=== PATIENT | male | born 1965 | race Caucasian/White ===

== ENCOUNTER → 2017-05-16 | Outpatient (CLI) | payer BC ==
[2017-05-16 09:24] LABS: BUN 9 mg/dL (7-18)
[2017-05-16 09:43] LABS: GFR (ESTIMATED) 102 ML/MIN (>60)
== END ==
LOC: LAB 07:03
PROVIDERS: Family Medicine
DX: Z13.29 Encounter for screening for other suspected endocrine disorder (principal)

== ENCOUNTER 2017-11-02 21:12 | Observation (INO) | payer BC ==
[~2017-11-02] VITALS: Ht 172.7 cm; Wt 65.5 kg
[2017-11-02 21:21] VITALS: BP 192/115
[2017-11-02] MEDS ORDERED: COLESTIPOL HYDRO1 GM PO (21:27)
[2017-11-02] MEDS ORDERED: PANTOPRAZOLE SO40 M1 PO (21:28)
[2017-11-02] MEDS ORDERED: MELOXICAM15 MG PO (21:28)
[2017-11-02 21:31] LABS: URINE BILIRUBIN - DIPSTICK NEGATIVE (NEG); URINE BLOOD NEGATIVE (NEG)
[2017-11-02 21:34] LABS: HEMOGLOBIN 13.5 g/dL (14.1-18.0); LYMPH # 2.6 K/mm3 (0.7-4.5); LYMPH % 36.8 % (10-50)
--- OUTSIDE RECORDS SUMMARY | 2017-11-02 21:37 | External Medical Summary Rpt ---
[facility] Address Unknown Phone Unavailable Care Team Providers Care Military Technician Name Role Phone PHY, UNKNOWN PCP Unavailable Encounter [facility] [id number] Date(s): 12/03/16 - 12/03/16 [facility] [address] [place] [address]- Discharge Disposition: OP Self Care or Home Attending Physician: STEVE AUSTIN II, MD-ANS Admitting Physician: STEVE AUSTIN II, MD-ANS Referring Physician: STEVE AUSTIN II, MD-ANS Reason for Visit PM Vital Signs No data available for this section Problem List No data available for this section Allergies, Adverse Reactions, Alerts No data available for this section Medications No data available for this section Results No data available for this section Immunizations No data available for this section Procedures No data available for this section Social History No data available for this section Assessment and Plan No data available for this section Hospital Discharge Instructions No data available for this section
--- OUTSIDE RECORDS SUMMARY | 2017-11-02 21:37 | External Medical Summary Rpt | CCD ---
Demographics Preferred Language Azeri Marital Status Unknown Faith Affiliation Unknown Race Unknown Ethnic Group Unknown Author Author , JULIANA ANDREWS Address Unknown Phone Immunization No patient found.
--- OUTSIDE RECORDS SUMMARY | 2017-11-02 21:37 | External Medical Summary Rpt | CCD ---
Author Author [employer] Organization [employer] Address Unknown Phone Unavailable Purpose Continuity of Care Document - through 2016
--- OUTSIDE RECORDS SUMMARY | 2017-11-02 21:37 | External Medical Summary Rpt | CCD ---
Author Author , JULIANA ANDREWS Address Unknown Phone [email or web address] Purpose Continuity of Care Document - 05-16-2017 through 2016
--- OUTSIDE RECORDS SUMMARY | 2017-11-02 21:37 | External Medical Summary Rpt | CCD ---
Demographics Preferred Language Maori Marital Status Unknown Quaker Affiliation Unknown Race Unknown Ethnic Group Unknown Author Author , JULIANA ANDREWS Address Unknown Phone Immunization No patient found.
--- OUTSIDE RECORDS SUMMARY | 2017-11-02 21:37 | External Medical Summary Rpt | CCD ---
Author Author , JULIANA ANDREWS Address Unknown Phone Purpose Continuity of Care Document - 05-16-2017 through 2016
--- OUTSIDE RECORDS SUMMARY | 2017-11-02 21:37 | External Medical Summary Rpt ---
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 [address]- Discharge Disposition: OP Self Care or Home [...]
--- OUTSIDE RECORDS SUMMARY | 2017-11-02 21:38 | External Medical Summary Rpt ---
Author Author JULIANA Nestor, JULIANA [employer] Organization [employer] Address Unknown Phone Unavailable Results Basic metabolic panel in Blood Observa Value Referen Units Interpr Notes Date tion ce etation Range Urea 7 - 18 mg/dL Normal No May 16 nitrogen informati 2016 7:04 [Mass/vol on in AM ume] in source Serum or data Plasma Calcium 8.5 - mg/dL Normal No May 16 [Mass/vol 10.1 informati 2016 7:04 ume] in on in AM Serum or source Plasma data Chloride 98 - 107 mmoL/L Low No May 16 [Moles/vo informati 2016 7:04 lume] in on in AM Serum or source Plasma data Carbon 21.0 - mmoL/L Normal No May 16 dioxide, 32.0 informati 2016 7:04 total on in AM [Moles/vo source lume] in data Serum or Plasma Creatinin 0.70 - mg/dL Normal No May 16 e 1.30 informati 2016 7:04 [Mass/vol on in AM ume] in source Serum or data Plasma Estimated >60 ML/MIN No REFERENCE May 16 informati RANGE: 2017 7:04 glomerula on in >60 AM r source ML/MIN/1. filtratio data 73 SQUARE n rate METERSIf (GF this patient is -A merican, then multiply theresult by 1.210. Glucose 74 - 106 mg/dL Normal No May 16 [Mass/vol informati 2016 7:04 ume] in on in AM Serum or source Plasma data Potassium 3.5 - 5.1 mmoL/L Normal No May 16 informati 2016 7:04 [Moles/vo on in AM lume] in source Serum or data Plasma Sodium 136 - 145 mmoL/L Low No May 16 [Moles/vo informati 2016 7:04 lume] in on in AM Serum or source Plasma data Lipid 1996 panel in Serum or Plasma Observa Value Referen Units Interpr Notes Date tion ce etation Range Cholester < 200 mg/dL No No May 16 ol informati informati 2017 7:04 [Moles/vo on in on in AM lume] in source source Unspecifi data data ed specimen Cholester 40 - 60 MG/DL High No May 16 ol in HDL informati 2016 7:04 on in AM [Mass/vol source ume] in data Serum or Plasma Cholester 0 - 130 mg/dL Normal No May 16 ol in LDL informati 2016 7:04 on in AM [Mass/vol source ume] in data Serum or Plasma by calculati on Triglycer 30 - 200 mg/dL Normal No May 16 bran informati 2017 7:04 [Moles/vo on in AM lume] in source Serum or data Plasma Cholester 0 - 40 No Normal No May 16 ol in informati informati 2017 7:04 VLDL on in on in AM [Mass/vol source source ume] in data data Serum or Plasma Thyrotropin [Units/volume] in Serum or Plasma Observa Value Referen Units Interpr Notes Date tion ce etation Range Thyrotrop 0.358 - uIU/ml Normal No May 16 in 3.740 informati 2017 7:04 [Units/vo on in AM lume] in source Serum or data Plasma
--- NOTE | 2017-11-02 22:27 | Emergency Room Report ---
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 N Clinical Suspician of Infection? N Mental Status: 1 - Regular (Normal Baseline) Sepsis Risk:Low Sepsis Risk Have you (or family members/close friends) recently traveled outside the [place]? N If Yes, where/when: Have you had exposure to infectious disease within the past month? N TB? Other? Specify: Source patient, RN notes reviewed, family, old records Exam Limitations no limitations Comment pt with progressive rt upper abd pain with nausea and vomiting with dec po intake - pt has known gb dis and has seen dr gtz in past Cardiac Chest Pain Chest pain indicative of cardiac No Timing/Duration this evening Severity moderate ALLERGIES Coded Allergies: No Known Allergies (06/09/17) Home Medications Reported Medications COLESTIPOL HCL (Colestipol HCl) 1 GM PO DAILY #60 Meloxicam (Meloxicam 15MG) 15 MG PO BID #30 Pantoprazole Sodium 40 MG PO DAILY #30 History Medical History General CAD? No Angina: No [place]: No Hypertension? No Hyperlipidemia? No CHF? No DVT? No PE? No COPD? No Asthma? No Anemia? No GERD? No Gastric ulcers? No GI Bleed? No Hernia? No Thyroid Problems? No Hypothyroidism? No CVA? No Seizures? No Diabetes? No Renal Insuffiency? No End Stage Renal Disease? No UTI? No Stones? No BPH? No GB Disease: Yes Nephritic Syndrome? No Asplenia? No Hepatitis? No Sickle Cell Disease? No Arthritis? No Migraines? No Cataracts? No Glaucoma? No MRSA? No HIV? No TB? No Anxiety? No Depression? No Cancer? No More? No Immunization Hx DT/Tetanus 1-4 YRS Surgical Hx Previous Surgery?Y TONSILLECTOMY CHILD Social History Smoking Hx Smoker: Current Every Day Smoker Tobacco: Yes Type Cigarettes Packs/day 1 1/2 - 2 Packs Alcohol Alcohol: Yes Drugs none Review of Systems All Other Systems Reviewed and Negative Constitutional denies fever Eyes denies drainage ENT denies: ear discharge, epistaxis, throat pain. Respiratory denies cough, denies shortness of breath, denies wheezing Cardiovascular denies chest pain, denies syncope Gastrointestinal see HPI, abdominal pain, nausea, vomiting Genitourinary denies: dysuria, frequency, hesitancy, hematuria. Musculoskeletal denies back pain, denies joint pain, denies neck pain Skin denies rash Psychiatric/Neurological denies headache, denies seizure Physical Exam Vital Signs Vital Signs Date Time Temp Pulse Resp B/P Pulse O2 O2 Flow FiO2 Ox Delivery Rate 11/02 2240 18 11/02 2131 18 11/02 2121 97.8 85 18 192/115 98 - WBC >12,000 or <4,000 or 10% bands? 2 or more SIRS Criteria Met? B/P:192/115 MAP:140 Creatinine >2.0? UA output<0.5ml/kg/hr for 2 hrs? Platelet count >100,000? Lactate >2.0mmol/1? INR >1.2 or PTT > than 60 sec? Evidence of Organ Dysfunction? Provider documented clinical suspician of infection? N Sepsis Criteria Count: 0 Sepsis Risk: Low Sepsis Risk General Appearance no apparent distress Eye Exam - bilateral eye PERRL, bilateral eye EOMI Ear, Nose, Throat normal ENT inspection Neck supple Respiratory Status No: respiratory distress. Lung Sounds bilateral: lungs clear. 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 No Results/Orders Laboratory Tests 11/02/172129: Sodium 125 L, Potassium 3.4 L, Chloride 90 L, Carbon Dioxide 26, BUN 7, Creatinine 0.8, Estimated Creat Clear 100, Estimated GFR (MDRD) 102, Glucose 103 , Calcium 9.2, Total Bilirubin 0.3, AST 16, ALT 18, Alkaline Phosphatase 106, Total Protein 7.2, Albumin 4.3, Globulin 2.9, Albumin/Globulin Ratio 1.5, Amylase 45, Lipase 78, WBC 7.0, RBC 4.34 L, Hgb 13.5 L, Hct 39.3 L, MCV 90.5, RDW 12.3, Plt Count 423, MPV 6.7 L, Gran % 52.7, Gran # 3.7, Lymphocytes % 36.8 , Monocytes % 6.2, Eosinophils % 3.4, Basophils % 0.8, Lymphocytes # 2.6, Monocytes # 0.4, Eosinophils # 0.2, Basophils # 0.1, PUBS MCHC 34.4, MCH 31.1 11/02/172114: Urine Color YELLOW, Urine Appearance CLEAR, Urine pH 7.0, Ur Specific [place] 1.010, Urine Protein NEGATIVE, Urine Ketones NEGATIVE, Urine Blood NEGATIVE, Urine Nitrate NEGATIVE, Urine Bilirubin NEGATIVE, Urine Urobilinogen 0.2, Ur Leukocyte Esterase NEGATIVE, Urine RBC NONE, Urine WBC NONE, Ur Squamous Epith Cells NONE, Urine Bacteria TRACE, Urine Glucose NEGATIVE Current Medication Orders Sig/Nilson Start time Last Medication Dose Route Stop Time Status Admin Sodium Chloride 25 ML .STK-MED ONE 11/02 2233 DC IV Hydromorphone HCl 0 .STK-MED ONE 11/02 2232 DC .ROUTE Sodium Chloride 1,000 ML .STK-MED ONE 11/02 2231 DC IV Hydromorphone HCl 1 MG ONCE ONE 11/02 2230 DC 11/02 IV 11/02 Promethazine HCl 12.5 MG ONCE ONE 11/02 2230 DC / IV 11/02 Sodium Chloride 25 ML ONCE ONE 11/02 2230 DC / IV 11/02 2244 2246 Sodium Chloride 1,000 ML .Q10H 11/02 2230 AC / IV 11/03 1028 2244 Sodium Chloride 10 ML PRN PRN 11/02 2230 AC IV 11/03 222 Ketorolac 30 MG ONCE ONE 11/02 2130 DC 11/02 Tromethamine IV 11/02 Ondansetron HCl 4 MG ONCE ONE 11/02 2130 DC 11/02 IV 11/02 Sodium Chloride 1,000 ML .Q1H1M 11/02 2130 DC 11/02 IV 11/02 Sodium Chloride 10 ML PRN PRN 11/02 2130 AC IV 11/03 2120 Ketorolac 0 .STK-MED ONE 11/02 2123 DC Tromethamine .ROUTE Ondansetron HCl 0 .STK-MED ONE 11/02 2122 DC .ROUTE Sodium Chloride 1,000 ML .STK-MED ONE 11/02 2122 DC IV Sodium Chloride 10 ML PRN PRN 11/02 2115 AC IV 11/03 2115 Orders Procedure Date/time Status DIET-NOTHING BY MOUTH 11/03 B Active Decision to admit 11/[address] ABD & PELVIS W/O CONTRAST 11/[address] ABD REQUEST 11/02 2115 Complete IV SALINE LOCK 11/02 2115 Active URINALYSIS/COMPLETE 11/02 2115 Complete LIPASE 11/02 2115 Complete CBC WITH AUTO DIFF 11/02 2115 Complete CHEM 12 PROFILE 11/02 2115 Complete AMYLASE 11/02 2115 Complete XRAY/CT/US XRAY/CT/US CT abdomen, pelvis CT interpretation by discussed w/radiologist Time results known: 225 CT Results normal/NAD Departure Departure Time of Disposition 2234 Disposition Still a Patient Clinical Impression Primary Impression: Abdominal pain Qualifiers: Abdominal location: right upper quadrant Qualified Code: R10.11 - Right upper quadrant pain Secondary Impressions: Gallbladder disease Condition STABLE Referrals Chico Ortega MD (Family) discussed with dr ortega and dr gtz ED Critical Care Critical Care No at 2251
--- OUTSIDE RECORDS SUMMARY | 2017-11-02 22:48 | External Medical Summary Rpt | CCD ---
Author Author , JULIANA Organization JULIANA Address Unknown Phone [email or web address] Purpose Continuity of Care Document - 05-16-2017 through 2016 Results Labs Lab Lab Date Result Refere Interp Status Commen Order Detail nces retati t Range on Urinalysis dipstick W Reflex Microscopic panel in Urine (11-02-2017 21:15) Bacteri TRACE O complet a 017 ed [Presen 21:15 ce] in Urine sedimen t by Light microsc opy Erythro NONE 0 complet cytes 017 ed [Presen 21:15 ce] in Urine sedimen t by Light microsc opy Epithel NONE OCC complet ial 017 ed cells.s 21:15 quamous [Presen ce] in Urine sedimen t by Microsc opy high power field Urinalysis dipstick W Reflex Microscopic panel in Urine (11-02-2017 21:15) Appeara 11-02- CLEAR CLEAR complet nce of 017 ed Urine 21:15 Bilirub NEGATIV NEG complet in 017 E ed [Presen 21:15 ce] in Urine by Test strip Erythro 2 NEGATIV NEG complet cytes 017 E ed [Presen 21:15 ce] in Urine Color 11-02-2 YELLOW YELLOW complet of 017 ed Urine 21:15 Ketones 11-02-2 NEGATIV NEG complet 017 E ed [Presen 21:15 ce] in Urine by Automat ed test strip Mucus 11-02-2 NEGATIV NEG complet [Presen 017 E ed ce] in 21:15 Urine sedimen t by Light microsc opy Nitrite 11-02-2 NEGATIV NEG complet 017 E ed [Presen 21:15 ce] in Urine by Test strip Urobili 11-02-2 0.2 NEG complet nogen 017 ed [Presen 21:15 ce] in Urine by Test strip
--- OUTSIDE RECORDS SUMMARY | 2017-11-02 22:48 | External Medical Summary Rpt | CCD ---
Demographics Preferred Language Frisian Marital Status Unknown Jainism Affiliation Unknown Race Unknown Ethnic Group Unknown Author Author , JULIANA ANDREWS Address Unknown Phone Immunization No patient found.
--- OUTSIDE RECORDS SUMMARY | 2017-11-02 22:48 | External Medical Summary Rpt | CCD ---
Author Author , JULIANA Organization [employer] Address Unknown Phone [email or web address] Purpose Continuity of Care Document - 05-16-2017 [...]
--- OUTSIDE RECORDS SUMMARY | 2017-11-02 22:48 | External Medical Summary Rpt | CCD ---
Demographics Preferred Language Mohawk Marital Status Unknown Episcopal Affiliation Unknown Race Unknown Ethnic Group Unknown Author Author , JULIANA ANDREWS Address Unknown Phone Immunization No patient found.
--- OUTSIDE RECORDS SUMMARY | 2017-11-02 22:49 | External Medical Summary Rpt ---
Author Author POPPADMINI Baez, [employer] Organization [employer] Address Unknown Phone Unavailable Results Amylase [Enzymatic activity/volume] in Serum or Plasma Observa Value Referen Units Interpr Notes Date tion ce etation Range Amylase 25 - 115 U/L Normal No Nov 02 [Enzymati informati 2017 9:30 c on in PM activity/ source volume] data in Serum or Plasma Comprehensive metabolic 2000 panel in Serum or Plasma Observa Value Referen Units Interpr Notes Date tion ce etation Range Albumin/G 1.1 - 1.8 No Normal No Nov 02 lobulin informati informati 2016 9:30 [Mass on in on in PM ratio] in source source Serum or data data Plasma Albumin 3.4 - 5.0 gm/dL Normal No Nov 02 [Mass/vol informati 2016 9:30 ume] in on in PM Serum or source Plasma data Alkaline 46 - 116 U/L Normal No Nov 02 phosphata informati 2017 9:30 se on in PM [Enzymati source c data activity/ volume] in Serum or Plasma Bilirubin 0.2 - 1.0 mg/dL Normal No Nov 02 .total informati 2016 9:30 [Mass/vol on in PM ume] in source Serum or data Plasma Urea 7 - 18 mg/dL Normal No Nov 02 nitrogen informati 2016 9:30 [Mass/vol on in PM ume] in source Serum or data Plasma Calcium 8.5 - mg/dL Normal No Nov 02 [Mass/vol 10.1 informati 2017 9:30 ume] in on in PM Serum or source Plasma data Chloride 98 - 107 mmoL/L Low No Nov 02 [Moles/vo informati 2016 9:30 lume] in on in PM Serum or source Plasma data Carbon 21.0 - mmoL/L Normal No Nov 02 dioxide, 32.0 informati 2017 9:30 total on in PM [Moles/vo source lume] in data Serum or Plasma Creatinin 0.70 - mg/dL Normal No Nov 02 e 1.30 informati 2017 9:30 [Mass/vol on in PM ume] in source Serum or data Plasma Creatinin 50 - 200 ML/MIN Normal No Nov 02 e renal inform2016 9:30 clearance on in PM source predicted data by Cockcroft -Gault formula Estimated >60 ML/MIN No REFERENCE Nov 02 informati RANGE: 2017 9:30 glomerula on in >60 PM r source ML/MIN/1. filtratio data 73 SQUARE n rate METERSIf (GF this patient is -A merican, then multiply theresult by 1.210. Globulin 1.3 - 3.2 gm/dL Normal No Nov 02 [Mass/vol informati 2016 9:30 ume] in on in PM Serum source data Glucose 74 - 106 mg/dL Normal No Nov 02 [Mass/vol informati 2016 9:30 ume] in on in PM Serum or source Plasma data Potassium 3.5 - 5.1 mmoL/L Low No Nov 022016 9:30 [Moles/vo on in PM lume] in source Serum or data Plasma Sodium 136 - 145 mmoL/L Low No Nov 02 [Moles/vo 2016 9:30 lume] in on in PM Serum or source Plasma data Aspartate 15 - 37 U/L Normal No Nov 02 inform2016 9:30 aminotran on in PM sferase source [Enzymati data c activity/ volume] in Serum or Plasma Alanine 12 - 78 U/L Normal No Nov 02 aminotran inform2016 9:30 sferase on in PM [Enzymati source c data activity/ volume] in Serum or Plasma Protein 6.4 - 8.2 gm/dL Normal No Nov 02 [Mass/vol informati 2016 9:30 ume] in on in PM Serum or source Plasma data Lipase [Enzymatic activity/volume] in Serum or Plasma Observa Value Referen Units Interpr Notes Date tion ce etation Range Lipase 73 - 393 U/L Normal No Nov 02 [Enzymati informati 2016 9:30 c on in PM activity/ source volume] data in Serum or Plasma CBC W Auto Differential panel in Blood Observa Value Referen Units Interpr Notes Date tion ce etation Range Basophils 0 - 0.2 K/MM3 Normal No Nov 02 inform2016 9:30 [#/volume on in PM ] in source Blood by data Automated count Basophils 0.1 - 2.0 % Normal No Nov 02 inform2016 9:30 leukocyte on in PM s in source Blood by data Automated count Eosinophi 0.0 - 0.4 K/mm3 Normal No Nov 02 ls 2016 9:30 [#/volume on in PM ] in source Blood by data Automated count Eosinophi 0.1 - % Normal Nov 02 ls/100 12.0 inform2016 9:30 leukocyte on in PM s in source Blood by data Automated count Granulocy 1.3 - 8.0 K/mm3 Normal No Nov 02 francisco inform2016 9:30 [#/volume on in PM ] in source Blood by data Automated count Granulocy 37.0 - % Normal No Nov 02 francisco/100 80.0 informati 2016 9:30 leukocyte on in PM s in source Blood by data Automated count Hematocri 42.0 - % Low No Nov 02 t [Volume 52.0 2016 9:30 on in PM Fraction] source of Blood data Hemoglobi 14.1 - g/dL Low Nov 02 n 18.0 2016 9:30 [Mass/vol on in PM ume] in source Blood data Lymphocyt 0.7 - 4.5 K/mm3 Normal No Nov 02 es informati 2016 9:30 [#/volume on in PM ] in source Unspecifi data ed specimen by Automated count Lymphocyt 10 - 50 % Normal Nov 02 es 2016 9:30 [#/volume on in PM ] in source Unspecifi data ed specimen by Automated count Erythrocy 27 - 31.2 pg Normal No Nov 02 te mean 2016 9:30 corpuscul on in PM ar source hemoglobi data n [Entitic mass] Erythrocy 31.8 - g/dl Normal Nov 02 te mean 35.4 2016 9:30 corpuscul on in PM ar source hemoglobi data n concentra tion [Mass/vol ume] by Automated count Erythrocy 82.2 - fl Normal Nov 02 te mean 97.8 2016 9:30 corpuscul on in PM ar volume source [Entitic data volume] by Automated count Monocytes 0.1 - 1.0 K/mm3 Normal No Nov 02ati 2016 9:30 [#/volume on in PM ] in source Blood by data Automated count Monocytes 1.7 - 9.3 % Normal No Dec 13 /100 informati 2016 9:30 leukocyte on in PM s in source Blood by data Automated count Platelet 7.4 - fl Low No Nov 02 mean 10.4 informati 2016 9:30 volume on in PM [Entitic source volume] data in Blood by Automated count Platelets 142 - 424 K/mm3 Normal No Nov 022016 9:30 [#/volume on in PM ] in source Blood data Erythrocy 4.6 - 6.2 M/mm3 Low No Nov 02 francisco ati 2016 9:30 [#/volume on in PM ] in source Amniotic data fluid Erythrocy 11.5 - % Normal No Nov 02 te 17.5 informati 2016 9:30 distribut on in PM ion width source [Entitic data volume] by Automated count Leukocyte 4.8 - K/MM3 Normal No Nov 02 s 10.8 2016 9:30 [#/volume on in PM ] in source Blood data Urinalysis dipstick W Reflex Microscopic panel in Urine Observa Value Referen Units Interpr Notes Date tion ce etation Range Appeara CLEAR CLEAR No No No Nov 02 nce of informa informa informa 2016 Urine tion in tion in tion in 9:15 PM source source source data data data Bacteri TRACE O No No No Nov 02 a informa informa informa 2016 [Presen tion in tion in tion in 9:15 PM ce] in source source source Urine data data data sedimen t by Light microsc opy Bilirub NEGATIV NEG No No No Nov 02 in E informa informa informa 2016 [Presen tion in tion in tion in 9:15 PM ce] in source source source Urine data data data by Test strip Erythro NEGATIV NEG No No No Nov 02 cytes E informa informa informa 2016 [Presen tion in tion in tion in 9:15 PM ce] in source source source Urine data data data Color YELLOW YELLOW No No No Nov 02 of informa informa informa 2016 Urine tion in tion in tion in 9:15 PM source source source data data data Glucose NEG No No No Nov 02 [Mass/vol informati informati informati 2016 9:15 ume] in on in on in on in PM Urine by source source source Test data data data strip Ketones NEGATIV NEG mg/dL No No Nov 02 E informa informa 2016 [Presen tion in tion in 9:15 PM ce] in source source Urine data data by Automat ed test strip Mucus NEGATIV NEG No No No Nov 02 [Presen E informa informa informa 2016 ce] in tion in tion in tion in 9:15 PM Urine source source source sedimen data data data t by Light microsc opy Nitrite NEGATIV NEG No No No Nov 02 E informa informa informa 2016 [Presen tion in tion in tion in 9:15 PM ce] in source source source Urine data data data by Test strip pH of 5.0 - 8.5 No Normal No Nov 02 Urine informati informati 2016 9:15 on in on in PM source source data data Protein NEG mg/dL No No Nov 02 [Mass/vol informati informati 2016 9:15 ume] in on in on in PM Urine by source source Automated data data test strip Erythro NONE 0 rbc/hpf No No Nov 02 cytes informa informa 2016 [Presen tion in tion in 9:15 PM ce] in source source Urine data data sedimen t by Light microsc opy Specific 1.005 - No Normal No Nov 02 gravity 1.030 informati informati 2016 9:15 of Urine on in on in PM source source data data Epithel NONE OCC #/hpf No No Nov 02 ial informa informa 2016 cells.s tion in tion in 9:15 PM quamous source source data data [Presen ce] in Urine sedimen t by Microsc opy high power field Urobili 0.2 NEG E.U./dL No No Nov 02 nogen informa informa 2016 [Presen tion in tion in 9:15 PM ce] in source source Urine data data by Test strip Leukocyte O wbc/hpf No No Nov 02 s informati informati 2016 9:15 [#/volume on in on in PM ] in source source Urine data data Urinalysis dipstick W Reflex Microscopic panel in Urine Observa Value Referen Units Interpr Notes Date tion ce etation Range Appeara CLEAR CLEAR No No No Nov 02 nce of informa informa informa 2017 Urine tion in tion in tion in 9:15 PM source source source data data data Bilirub NEGATIV NEG No No No Nov 02 in E informa informa informa 2016 [Presen tion in tion in tion in 9:15 PM ce] in source source source Urine data data data by Test strip Erythro NEGATIV NEG No No No Nov 02 cytes E informa informa informa 2016 [Presen tion in tion in tion in 9:15 PM ce] in source source source Urine data data data Color YELLOW YELLOW No No No Nov 02 of informa informa informa 2016 Urine tion in tion in tion in 9:15 PM source source source data data data Glucose NEG No No No Nov 02 [Mass/vol informati informati informati 2016 9:15 ume] in on in on in on in PM Urine by source source source Test data data data strip Ketones NEGATIV NEG mg/dL No No Nov 02 E informa informa 2016 [Presen tion in tion in 9:15 PM ce] in source source Urine data data by Automat ed test strip Mucus NEGATIV NEG No No No Nov 02 [Presen E informa informa informa 2016 ce] in tion in tion in tion in 9:15 PM Urine source source source sedimen data data data t by Light microsc opy Nitrite NEGATIV NEG No No No Nov 02 E informa informa informa 2016 [Presen tion in tion in tion in 9:15 PM ce] in source source source Urine data data data by Test strip pH of 5.0 - 8.5 No Normal No Nov 02 Urine informati informati 2017 9:15 on in on in PM source source data data Protein NEG mg/dL No No Nov 02 [Mass/vol informati informati 2016 9:15 ume] in on in on in PM Urine by source source Automated data data test strip Specific 1.005 - No Normal No Nov 02 gravity 1.030 informati informati 2016 9:15 of Urine on in on in PM source source data data Urobili 0.2 NEG E.U./dL No No Nov 02 nogen informa informa 2016 [Presen tion in tion in 9:15 PM ce] in source source Urine data data by Test strip Basic metabolic panel in Blood Observa Value Referen Units Interpr Notes Date tion ce etation Range Urea 7 - 18 mg/dL Normal No May 16 nitrogen informati 2017 7:04 [Mass/vol on in AM ume] in [...] No No May 16 ol informati informati 2016 7:04 [Moles/vo on in on in AM [...] ume] in data Serum or Plasma by javan on Triglycer 30 - 200 mg/dL Normal [...]
[2017-11-02 23:07] VITALS: BP 167/91
[2017-11-02 23:14] VITALS: BP 167/91
[2017-11-03] VITALS (12 sets, daily range): BP systolic 115–166; BP diastolic 60–96
--- NOTE | 2017-11-03 05:40 | RADIOLOGY REPORT PS360 ---
CT ABD PELVIS W/O CONTRAST CLINICAL INDICATION: Generalized abdominal pain C/O ABD PAIN ORDERING PHYSICIAN: Chico Ortega MD PATIENT AGE: 52 years COMPARISON: 06/30/2017 TECHNIQUE: Axial images obtained with sagittal and coronal reformats. PROCEDURE: Oral Contrast: None IV Contrast: None . FINDINGS: Lower chest: No acute finding. Abdomen and pelvis: The liver, gallbladder, spleen, adrenal glands, pancreas, and ureters have an unremarkable unenhanced CT appearance. Urinary bladder wall is slightly thickened and may be seen with chronic cystitis. No evidence of appendicitis or diverticulitis. No intestinal obstruction or free air. No acute bony anomalies. IMPRESSION: No acute abdominal or pelvic findings.
[2017-11-03 06:40] LABS: HEMOGLOBIN 12.5 g/dL (14.1-18.0); LYMPH # 2.3 K/mm3 (0.7-4.5); LYMPH % 41.1 % (10-50)
--- NOTE | 2017-11-03 07:35 | PHARMACY CLINIC NOTE ---
Patient Demographics Patient Demographics Admission date: 11/02/17 Date: 11/03/17 Time: 0735 Allergies Coded Allergies: No Known Allergies (06/09/17) HEIGHT- FT: 5 IN: 8.00 K.516 VTE General Information Labs: Laboratory Tests 11/03 11/02 0605 2130 Hematology Hgb (14.1 - 18.0 g/dL) 12.5 L 13.5 L Hct (42.0 - 52.0 %) 37.9 L 39.3 L Plt Count (142 - 424 K/mm3) 403 423 Disclaimer The following section includes nursing documentation that has been pulled in for pharmacy review. Patient's VTE score: 1 Patient's VTE Risk: VERY LOW RISK Clinical trial participant? No VTE prophylaxis [id number] VTE prophylaxis ordered? Yes Type of prophylaxis/treatment: LUCIANO at 0735
[2017-11-03 07:47] LABS: BILIRUBIN, INDIRECT 0.59 mg/dL (0-0.9)
--- NOTE | 2017-11-03 08:29 | HISTORY AND PHYSICAL REPORT ---
History and Physical ([facility]) Date of admission: 11/02/17 Chief complaint: RUQ pain History: History of Present Illness: Mr. Amin is a 52-year-old male with a known history of biliary dyskinesia. He saw Dr. Ortega in the office due to RIGHT upper quadrant pain and an ultrasound was ordered showing sludge. He then had a HIDA scan which showed a 20 percent ejection fraction. The patient was referred to Dr. Roca. He states they were trying to hold off on any type of surgery until the spring. Two days ago he began having RIGHT upper quadrant pain that was radiating into his RIGHT low back. He states the pain got progressively worse to the point where he had to present to the emergency room last night. He had a CT of the abdomen and pelvis showing nothing acute. He was given Dilaudid for pain and admitted with a surgery consult with Dr. Roca. Past Medical History: Medical History: CAD? No Angina: No GA: No Hypertension? No Hyperlipidemia? No CHF? No DVT? No PE? No COPD? No Asthma? No Anemia? No GERD? Yes Gastric ulcers? No GI Bleed? No Hernia? No Thyroid Problems? No Hypothyroidism? No CVA? No Seizures? No Diabetes? No Renal Insuffiency? No UTI? No Stones? No BPH? No GB Disease: Yes Nephritic Syndrome? No Asplenia? No Hepatitis? No Sickle Cell Disease? No Arthritis? No Migraines? No Cataracts? No Glaucoma? No MRSA? No HIV? No TB? No Anxiety? No Depression? No Cancer? No More? No Additional hx: 1. Colon polyps 2. 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 Social History: Smoking Hx Tobacco: Yes Smoker: Current Every Day Smoker Type: Cigarettes Packs/day: 1 1/2 - 2 Packs Are you exposed to second hand No Alcohol: Alcohol: Yes How much do you drink 1-2 Drinks Per Day For how long Longer Than 5 Years When was your last drink 12-24 Hours Ago Hx of Drug Use: Drug Use? No Review of Systems: Constitutional No: fatigue, lethargy, malaise, weak. ENT Positive for: nasal congestion. No: sore throat. Cardiovascular No: chest pain, edema, palpitations. Respiratory Positive for: shortness of air. No: productive cough (sputum), wheezing. GI Positive for: abdominal pain (RUQ), constipation. No: diarrhea, nausea, vomitting. (male) No: frequency, hematuria. Neurological No: dizziness, headache, weakness. Musculoskeletal Positive for: neck pain. No: extremity pain, joint pain. Physical Exam: Vital signs: 1ST Vital Signs Result Date Time Pulse Ox 98 11/02 2121 B/P 192/115 11/02 2121 Temp 97.8 11/02 2121 Pulse 85 11/02 2121 Resp 18 11/02 2121 O2 Delivery ROOM AIR 11/02 2314 Exam: General appearance: alert, awake, no acute distress Eyes: EOM's w/normal ROM, PERRLA ENT: nose normal, pharynx normal, dry mucous membranes Neck: non-tender, no carotid bruit, supple Cardiovascular: regular rate & rhythm Respiratory: clear to auscultation ABD: non-distended, normal bowel sounds, no rebound, soft, no guarding, ttp in the RUQ with positive Guerra's Sign Extremities: no peripheral edema Musculoskeletal: equal muscle strength, motor intact, sensation intact Skin: normal color Neuro: normal mood/affect, oriented, speech clear Lab data: Labs: Laboratory Tests 11/03/17 0605: Sodium 137, Potassium 4.0, Chloride 103, Carbon Dioxide 28, BUN 5 L, Creatinine 0.8, Estimated Creat Clear 100, Estimated GFR (MDRD) 102, Glucose 87, Calcium 8.7 11/03/17 0605: Total Bilirubin 0.7, Direct Bilirubin 0.11, Indirect Bilirubin 0.59, AST 16, ALT 17, Alkaline Phosphatase 90, Total Protein 6.0 L, Albumin 3.5, WBC 5.6, RBC 4.12 L, Hgb 12.5 L, Hct 37.9 L, MCV 92.0, RDW 12.6, Plt Count 403, MPV 6.6 L , Gran % 47.2, Gran # 2.6, Lymphocytes % 41.1, Monocytes % 5.9, Eosinophils % 5.0, Basophils % 0.9, Lymphocytes # 2.3, Monocytes # 0.3, Eosinophils # 0.3, Basophils # 0.1, PUBS MCHC 32.9, MCH 30.3 11/02/172129: Sodium 125 L, Potassium 3.4 L, Chloride 90 L, Carbon Dioxide 26, BUN 7, Creatinine 0.8, Estimated Creat Clear 100, Estimated GFR (MDRD) 102, Glucose 103 , Calcium 9.2, Total Bilirubin 0.3, AST 16, ALT 18, Alkaline Phosphatase 106, Total Protein 7.2, Albumin 4.3, Globulin 2.9, Albumin/Globulin Ratio 1.5, Amylase 45, Lipase 78, WBC 7.0, RBC 4.34 L, Hgb 13.5 L, Hct 39.3 L, MCV 90.5, RDW 12.3, Plt Count 423, MPV 6.7 L, Gran % 52.7, Gran # 3.7, Lymphocytes % 36.8 , Monocytes % 6.2, Eosinophils % 3.4, Basophils % 0.8, Lymphocytes # 2.6, Monocytes # 0.4, Eosinophils # 0.2, Basophils # 0.1, PUBS MCHC 34.4, MCH 31.1 11/02/172114: Urine Color YELLOW, Urine Appearance CLEAR, Urine pH 7.0, Ur Specific [place] 1.010, Urine Protein NEGATIVE, Urine Ketones NEGATIVE, Urine Blood NEGATIVE, Urine Nitrate NEGATIVE, Urine Bilirubin NEGATIVE, Urine Urobilinogen 0.2, Ur Leukocyte Esterase NEGATIVE, Urine RBC NONE, Urine WBC NONE, Ur Squamous Epith Cells NONE, Urine Bacteria TRACE, Urine Glucose NEGATIVE Radiology results: Results: CT abd/pelvis - nothing acute Diagnosis(es): 1. Gallbladder disease 2. Abdominal pain 3. GERD (gastroesophageal reflux disease) Plan: Pt was admitted for pain control. Dr. Roca has been consulted. (Izzy Santillan) Diagnosis(es): 1. Gallbladder disease 2. Abdominal pain 3. GERD (gastroesophageal reflux disease) Plan: Patient seen and agree with above note. (Chico Ortega MD) at 0829 at 0815
--- NOTE | 2017-11-03 09:23 | CONSULT NOTE ---
Standard Demographics Patient Demo Date of Consultation: 11/03/17 Referring Provider: Chico Ortega MD Reason for Consultation: gallbladder PRIMARY DIAGNOSIS: ABDOMINAL PAIN Allergies: Coded Allergies: No Known Allergies (06/09/17) History of Present Illness Chief Complaint: Abdominal pain History of Present Illness: He is a very pleasant 52-year-old white male originally referred from Dr. Ortega as an outpatient for consideration of gallbladder. I've seen him in the office several times. He had symptoms initially beginning as sensation of numbness and paresthesia over the skin in the RIGHT upper quadrant. He then developed symptoms consistent with what he describes as a "light bruise". He had tenderness with light palpation of the skin. He's had no relation of symptoms to eating. He underwent gallbladder ultrasound which revealed scant debris and sludge without gallbladder wall thickening or ductal dilatation.. He had HIDA scan performed on 06/09/17 which revealed an ejection fraction of 20 percent without any pain symptoms with CCK. Due to his unusual symptoms and equivocal findings on gallbladder workup I had him undergo CT scan of the abdomen and pelvis. This was essentially normal revealing some nondistention of the urinary bladder and sigmoid colon. Patient's symptoms have been relatively minor. He does describe some bloating but he also states that he has a history of IBS. He has been tolerating a diet with impunity. Plan was made for nonoperative management. However, he states that over the past 2 days he has had some progressive symptoms. This began on Tuesday. He developed more significant progressive pain in the RIGHT upper quadrant with radiation to the back. He states that yesterday evening this was extremely severe and he therefore presented to the emergency department. Blood work was relatively unremarkable. He underwent a noncontrast CT scan which revealed no acute findings. He was admitted for inpatient management for his intractable pain from gallbladder disease. Past Medical History Reports: GERD. Surgical History Previous Surgery?Y TONSILLECTOMY CHILD Allergies Coded Allergies: No Known Allergies (06/09/17) Medications: Reported Medications COLESTIPOL HCL (Colestipol HCl) 1 GM PO DAILY #60 Meloxicam (Meloxicam 15MG) 15 MG PO BID #30 Pantoprazole Sodium 40 MG PO DAILY #30 Smoking Hx Tobacco: Yes Smoker: Current Every Day Smoker Type: Cigarettes Packs/day: 1 1/2 - 2 Packs Are you/the child exposed to second-hand smoke: No Alcohol Alcohol: Yes How much do you drink 1-2 Drinks Per Day For how long Longer Than 5 Years When was your last drink 12-24 Hours Ago Hx of Drug Use Drug Use? No Review of Systems Systems reviewed and negative: GI, , allergy/immunity, cardiovascular, constitutional, respiratory Physical Exam Exam General appearance no acute distress Respiratory clear to auscultation Cardiovascular normal heart sounds Abdomen no guarding, soft Findings/Data He does have some subjective tenderness in the RIGHT upper quadrant to deep palpation without guarding or rebound. Plan Plan: Most likely patient's symptoms are biliary colic secondary to chronic acalculous cholecystitis (biliary dyskinesia). I discussed the options with him. He would like to pursue surgery. Plan to make arrangements for cholecystectomy. at 0938
--- NOTE | 2017-11-03 12:16 | Anesthesia Record ---
Anesthesia Record Part I Total IV fluids: 1500 EBL (ml): 0 Urine Output: 0 B/P: 134/77 % SaO2: 99 Pulse: 83 Resps: 12 Temp: 97.8 Patient is: Awake, Stable Stable to PACU at: 1215 at 1215
--- NOTE | 2017-11-03 12:17 | Anesthesia Record ---
Anesthesia Record Part II Discharge time: 1245 Destination: Same day surgery PACU nurse assessment review? Yes Patient is: Awake, Stable Anesthesia complications? No at 1218
--- NOTE | 2017-11-03 12:18 | Operative Note ---
Surgeon/Diagnoses Surgeon/Clerical Aide Teacher(s) Date of procedure: 11/03/17 Surgeon: Aldo Roca Diagnoses Pre-op diagnosis: Gallbladder disease Post-op diagnosis Same Procedure Procedure Procedure: Laparoscopic cholecystectomy Indications: NICK PUCKETT is a 52 year-old Male with a history of RIGHT upper quadrant abdominal pain. He is a very pleasant 52-year-old white male originally referred from Dr. Ortega as an outpatient for consideration of gallbladder. I' ve seen him in the office several times. He had symptoms initially beginning as sensation of numbness and paresthesia over the skin in the RIGHT upper quadrant. He then developed symptoms consistent with what he describes as a "light bruise ". He had tenderness with light palpation of the skin. He's had no relation of symptoms to eating. He underwent gallbladder ultrasound which revealed scant debris and sludge without gallbladder wall thickening or ductal dilatation.. He had HIDA scan performed on 06/09/17 which revealed an ejection fraction of 20 percent without any pain symptoms with CCK. Due to his unusual symptoms and equivocal findings on gallbladder workup I had him undergo CT scan of the abdomen and pelvis. This was essentially normal revealing some nondistention of the urinary bladder and sigmoid colon. Patient's symptoms have been relatively minor. He does describe some bloating but he also states that he has a history of IBS. He has been tolerating a diet with impunity. Plan was made for nonoperative management. However, he states that over the past 2 days he has had some progressive symptoms. This began on Tuesday. He developed more significant progressive pain in the RIGHT upper quadrant with radiation to the back. He states that yesterday evening this was extremely severe and he therefore presented to the emergency department. Blood work was relatively unremarkable. He underwent a noncontrast CT scan which revealed no acute findings. He was admitted for inpatient management for his intractable pain from gallbladder disease. Findings: He has somewhat distended tense gallbladder which was non-thickened. Interestingly there was some corkscrew twisting of the neck of the gallbladder at the cystic duct. Procedure Description: Consent was obtained and patient was taken to the operating room. He was given preoperative intravenous antibiotics. He was positioned in a supine position. Gen. anesthesia was induced via endotracheal tube. Abdomen was prepped and draped in the standard surgical fashion. Subumbilical skin incision was made and while performing abdominal wall lifted the Veress needle was inserted. CO2 pneumoperitoneum was achieved to 15 mmHg. 10/11 mm optical trocar was inserted at the umbilicus. Intraperitoneal contents were visualized. He was positioned in reverse Trendelenburg with LEFT side down. A couple 5 mm trochars were inserted in the RIGHT upper abdomen. 10 mm trocar was inserted in the epigastrium. Gallbladder was grasped retracted anteriorly and superiorly over the dome of the liver. There was Some mild edema around the gallbladder. The neck of the gallbladder was somewhat twisted in a corkscrew fashion. Infundibulum was retracted anterolaterally. Blunt dissection was carried out at the neck of the gallbladder freeing it and untwisting it. The cystic duct was clearly identified and isolated as was the use cystic artery. Cystic duct was multiply clipped and then divided. Cystic artery was coagulated with Guillaume ultrasonic harmonic elvira and divided. The gallbladder was dissected free from the liver in a retrograde fashion using Guillaume ultrasonic harmonic elvira. Gallbladder was placed within an Endo Catch retrieval device and removed from the peritoneal cavity via the umbilical trocar site. Gallbladder fossa was inspected for hemostasis which was assured. Trochars were removed and CO2 pneumoperitoneum was evacuated. Fascia at the umbilicus was closed with a 0 Vicryl suture. Local anesthetic was infiltrated. Skin incisions were closed with 4-0 Monocryl in a subcuticular fashion. 2 strips and clean dry sterile dressings were applied. EBL (ml): 20 Anesthesia: GETA Specimens: Gallbladder and contents Disposition Disposition: To PACU at 1217
[2017-11-03] MEDS ORDERED: HYDROCODONE/APA1 TA8 PO (15:22)
--- NOTE | 2017-11-03 15:22 | ACUTE CARE PROGRESS NOTE (QUA) ---
Progress Notes Subjective Date 11/03/17 Time 1520 Note Patient has done well post operatively. TOlerating full liquid diet. He wants to go home. Objective Findings Last VS-Temp:98.2 B/P:145/84 Pulse:83 Resp:20 SaO2:98 ROOM AIR Last weight lbs:144 oz:7 [id number] Method:Bed Scales Exam General appearance: alert, awake, no acute distress Cardiovascular: regular rate & rhythm Respiratory: clear to auscultation Assessment/Plan Problem List 1. Gallbladder disease 2. Abdominal pain 3. GERD (gastroesophageal reflux disease) This inpt stay is expected to cross 2 MNs from start of care No Comments: OK to discharge home today. F/U with Dr. Roca in 2 weeks. at 1529
--- NOTE | 2017-11-04 15:36 | DISCHARGE SUMMARY STANDARD ---
Discharge Summary (FCA2) Date of admission: 11/02/17 Date of discharge: 11/03/17 Problem List: 1. Gallbladder disease 2. Abdominal pain 3. GERD (gastroesophageal reflux disease) History of present illness: Mr. Amin is a 52-year-old male with a known history of biliary dyskinesia. He saw Dr. Ortega in the office due to RIGHT upper quadrant pain and an ultrasound was ordered showing sludge. He then had a HIDA scan which showed a 20 percent ejection fraction. The patient was referred to Dr. Roca. He states they were trying to hold off on any type of surgery until the spring. Two days ago he began having RIGHT upper quadrant pain that was radiating into his RIGHT low back. He states the pain got progressively worse to the point where he had to present to the emergency room last night. He had a CT of the abdomen and pelvis showing nothing acute. He was given Dilaudid for pain and admitted with a surgery consult with Dr. Roca. Exam on admission: General appearance: alert, awake, no acute distress Eyes: EOM's w/normal ROM, PERRLA ENT: nose normal, pharynx normal, dry mucous membranes Neck: non-tender, no carotid bruit, supple Cardiovascular: regular rate & rhythm Respiratory: clear to auscultation ABD: non-distended, normal bowel sounds, no rebound, soft, no guarding, ttp in the RUQ with positive Guerra's Sign Extremities: no peripheral edema Musculoskeletal: equal muscle strength, motor intact, sensation intact Skin: normal color Neuro: normal mood/affect, oriented, speech clear Hospital Course: Dr. Roca saw the patient in consultation and proceeded with a laproscopic cholecystectomy. He tolerated the procedure well and was able to tolerate a diet. He was stable to be discharged home with a f/u with Dr. Roca. Discharge medications: Continue taking these medications: COLESTIPOL HCL (Colestipol HCl) 1 GM TABLET 1 GRAM ORAL DAILY Qty = 60 Meloxicam (Meloxicam 15MG) 15 MG TABLET 15 MILLIGRAM ORAL TWICE A DAY Qty = 30 Pantoprazole Sodium (Pantoprazole Sodium) 40 MG TABLET. 40 MILLIGRAM ORAL DAILY Qty = 30 Start taking the following new medications: HYDROCODONE/ACETAMINOPHEN (LORTAB 5-325 (generic)) 1 EACH TABLET 1-2 TABLET ORAL EVERY 6 HOURS NEEDED as needed for PAIN Qty = 25 No Refills Disposition: F/U with: Aldo Roca MD Follow up: 2 WEEKS Activity: per Dr. Roca Diet: Continue same diet, Low Fat/Low Cholesterol Discharge to: HOME Agency needed? N at [id number]
== END 2017-11-03 16:00 | disposition home or self-care (01) ==
LOC: ER 21:12 → 2ND 22:45 → ER 22:45 → 2ND 22:47
PROVIDERS: Emergency Medicine; Surgery
PROC: 0FT44ZZ Resection of Gallbladder, Percutaneous Endoscopic Approach (ICD-10-PCS; principal; 2017-11-02)
DX: K82.8 Other specified diseases of gallbladder (principal); K21.9 Gastro-esophageal reflux disease without esophagitis
CPT/HCPCS: G0378; J0131; J2405; J2710